=== PATIENT | female | born 1965 | race Two or more races ===

== ENCOUNTER 2022-04-12 21:42 | Emergency (ER) | payer OTHER ==
[~2022-04-12] VITALS: Ht 165.1 cm; Wt 77.1 kg
--- NOTE | 2022-04-12 22:08 | NUR ---
CALLED FOR TRIAGE. NO ANSWER
[2022-04-12 22:22] VITALS: BP 151/94
[2022-04-12] MEDS ORDERED: AMOX-430 PO ×2 (23:07→23:59)
[2022-04-12] MEDS ORDERED: IBUP-1953 PO ×2 (23:07→23:59)
--- NOTE | 2022-04-12 23:10 | NUR ---
Patient discharged to home in stable condition. Written and verbal after care instructions given. Patient verbalizes understanding of instruction.
[2022-04-12] MEDS ORDERED: AMOX/CLAVULANATE 875 MG TABLET PO ONE (23:30)
[2022-04-12] MEDS ORDERED: ACETAMINOPHEN 325 MG TABLET PO ONE (23:30)
[2022-04-12] MEDS ORDERED: TDAP [DIPH/PERTUSSIS/TET] 0.5 ML VIAL IM ONE ×2 (23:30→23:31)
[2022-04-12] MEDS ORDERED: ACETAMINOPHEN 325 MG TABLET ONE (23:31)
[2022-04-12] MEDS ORDERED: AMOX/CLAVULANATE 875 MG TABLET ONE (23:31)
== END 2022-04-12 23:47 | disposition home or self-care (01) ==
LOC: ER 21:44
DX: S71.132A Puncture wound without foreign body, left thigh, initial encounter (principal); I10 Essential (primary) hypertension; Z98.890 Other specified postprocedural states; Z60.2 Problems related to living alone; W54.0XXA Bitten by dog, initial encounter; Y93.89 Activity, other specified; Y92.89 Other specified places as the place of occurrence of the external cause; Y99.8 Other external cause status
CPT/HCPCS: 90715